=== PATIENT | male | born 1955 | race Caucasian/White ===

== ENCOUNTER 2016-11-27 16:51 | Emergency (ER) | payer MEDICARE ==
[2016-11-27 17:38] LABS: BASO % 0.6 % (0.2-1.2); EOS # 0.1 10_X3_uL (0.0-0.5); EOS % 2.1 % (0.8-7.0); GRAN # 4.6 10_X3_uL (1.8-5.4); HEMATOCRIT 41.8 % (40-51); HEMOGLOBIN 13.9 g/dL (13.7-17.5); LYMPH # 1.2 10_X3_uL (1.3-3.6); LYMPH % 18.5 % (21.8-53.1); MEAN CORPUSCULAR HEMOGLOBIN 30.3 pg (27.0-33.0); MEAN CORPUSCULAR HGB CONC 33.3 g/dL (32.0-36.0); MEAN CORPUSCULAR VOLUME 91.3 fL (79-92); MEAN PLATELET VOLUME 9.6 fl (7.5-11.5); MONO # 0.6 10_X3_uL (0.3-0.8); MONO % 8.8 % (5.3-12.2); PLATELET COUNT 193 x10_3/uL (163-337); RED BLOOD COUNT 4.58 x10_6/uL (4.6-6.1); RED CELL DISTRIBUTION WIDTH 14.1 % (11.6-14.4); WHITE BLOOD COUNT 6.6 x10_3/uL (4.2-9.1)
[2016-11-27 17:51] LABS: PARTIAL THROMBOPLASTIN TIME 24.8 SECONDS (21.3-29.3); PROTHROMBIN TIME (PATIENT) 10.7 SECONDS (9.9-11.1)
[2016-11-27 17:54] LABS: ALBUMIN 3.6 gm/dL (3.4-5.0); ALKALINE PHOSPHATASE 88 U/L (50-136); ALT/SGPT 13 U/L (7.53-40.17); AST/SGOT 15 U/L (6.66-35.34); BILIRUBIN,TOTAL < 0.15 mg/dL (0.0-1.0); BLOOD UREA NITROGEN 11 mg/dL (7-18); CALCIUM 8.3 mg/dL (8.7-10.7); CARBON DIOXIDE 26 mmol/L (21-32); CREATINE KINASE 129 U/L (35-232); CREATININE 0.8 mg/dL (0.6-1.3); GLUCOSE,RANDOM 86 mg/dL (70-99); SODIUM 141 mmol/L (136-145)
== END 2016-11-27 22:35 | disposition short-term general hospital (02) ==
LOC: ER 16:51
PROVIDERS: Emergency Medicine
DX: R07.9 Chest pain, unspecified (principal); I51.9 Heart disease, unspecified; I10 Essential (primary) hypertension; J44.9 Chronic obstructive pulmonary disease, unspecified; Z95.5 Presence of coronary angioplasty implant and graft; Z95.1 Presence of aortocoronary bypass graft; F17.210 Nicotine dependence, cigarettes, uncomplicated; Z82.49 Family history of ischemic heart disease and other diseases of the circulatory system; Z79.899 Other long term (current) drug therapy
CPT/HCPCS: 36415; 71260; 80053; 82550; 82553; 85025; 85610; 85730; 93005; 96374; 99285-25; Q9967